=== PATIENT | male | born 1955 | race Two or more races ===

== ENCOUNTER 2017-02-19 18:16 | Emergency (ER) | payer MEDICAID ==
[~2017-02-19] VITALS: Ht 180.3 cm; Wt 77.1 kg
[2017-02-19 19:15] VITALS: BP 143/83
--- NOTE | 2017-02-19 19:56 | Emergency Room Report ---
History of Present Illness General Chief Complaint: General Complaint Source: Patient Present Illness HPI 61-year-old male presents to the emergency department complaining of tender lesions under the tongue and inside the upper lip x3 days. Patient denies fevers, chills, recent illness, past medical history, immunocompromise. Patient denies neck pain or stiffness. Reports moderate sensitivity to lesions in the mouth. Denies rashes. Denies night sweats, significant changes in weight, history of smoking or tobacco use. He states he is otherwise healthy. Denies CP, Palpitations, LOC, AMS, dizziness, Changes in Vision, Sensation, paresthesias, or a sudden severe headache. Allergies: Coded Allergies: No Known Allergies (Unverified , 02/19/17) Patient History Past Medical History: see triage record Past Surgical History: none Pertinent Family History: none Reviewed Nursing Documentation: PMH: Agreed, PSxH: Agreed Nursing Documentation-PMH Past Medical History: No Stated History Review of Systems All Other Systems: negative except mentioned in HPI Physical Exam Vital Signs Date Time Temp Pulse Resp B/P (MAP) Pulse Ox O2 Delivery O2 Flow Rate FiO2 02/19/17 18:40 98.2 67 18 143/83 99 Room Air Sp02 EP Interpretation: reviewed, normal General Appearance: no apparent distress, alert, GCS 15, non-toxic Head: normocephalic, atraumatic Eyes: bilateral eye normal inspection, bilateral eye PERRL ENT: hearing grossly normal, normal pharynx, no angioedema, normal voice, TMs + canals normal, uvula midline, moist mucus membranes, other - white ulcerated lesions on the inner uper lip, and under the tongue on the lingual frenulum, no vesicles Neck: full range of motion, no meningismus, supple/symm/no masses Respiratory: lungs clear, normal breath sounds, speaking full sentences Cardiovascular #1: regular rate, rhythm Musculoskeletal: back normal, gait/station normal, normal range of motion, non- tender Neurologic: alert, oriented x3, responsive, motor strength/tone normal, sensory intact, speech normal Psychiatric: judgement/insight normal, memory normal, mood/affect normal Skin: normal color, no rash, warm/dry, well hydrated Lymphatic: no adenopathy Medical Decision Making PA Attestation Dr. Perla is my supervising Physician whom patient management has been discussed with. Diagnostic Impression: Primary Impression: Aphthous ulcer ER Course 61-year-old male presents to the emergency department complaining of tender lesions under the tongue and inside the upper lip x3 days. Patient denies fevers, chills, recent illness, past medical history, immunocompromise. Patient denies neck pain or stiffness. Reports moderate sensitivity to lesions in the mouth. Denies rashes. Denies night sweats, significant changes in weight, history of smoking or tobacco use. He states he is otherwise healthy. Denies CP, Palpitations, LOC, AMS, dizziness, Changes in Vision, Sensation, paresthesias, or a sudden severe headache. Ddx considered but are not limited to: stomatitis, up from his ulcers, oral thrush, HFM, koplik spots, HSV, dental abscess, [employer]ATOR, tonsiliths. Vital signs: are WNL, pt. is afebrile H&PE are most consistent with aphthous ulcers ORDERS: none required at this time, the diagnosis is clinical ED INTERVENTIONS: None required at this time. -d/w pt. conservative treatment, and to follow up with a primary care provider. pt given a list of primary care clinics for follow up. d/w pt. to return to the ED with worsening or new symptoms. DISCHARGE: At this time pt. is stable for d/c to home. Will provide printed patient care instructions, and any necessary prescriptions. Care plan and follow up instructions have been discussed with the patient prior to discharge. Last Vital Signs Date Time Temp Pulse Resp B/P (MAP) Pulse Ox O2 Delivery O2 Flow Rate FiO2 02/19/17 18:40 98.2 67 18 143/83 99 Room Air Disposition: HOME, SELF-CARE Condition: Stable Scripts Lidocaine HCl 2% Viscous (Lidocaine HCl 2% Viscous) 100 Ml Solution 10 ML ORAL QID, #200 ML Prov: Iona Rodriguez 02/19/17 Chlorhexidine Gluconate (CHLORHEXIDINE GLUCONATE) 473 Ml Mouthwash 15 ML MM BID, #437 ML Prov: Iona Rodriguez 02/19/17 Patient Instructions: Canker Sores, Cold Sore, [id number] Additional Instructions: Take medications as directed. Follow up with a Primary Care Provider in 3-5 days, even if your symptoms have resolved. --Please review list of primary care clinics, if you do not already have a primary care provider Return sooner to ED if new symptoms occur, or current symptoms become worse. - Please note that this Emergency Department Report was dictated using [employer] win[employer] technology software, occasionally this can lead to erroneous entry secondary to interpretation by the dictation equipment. Iona Rodriguez Feb 19, 2017 19:56
[2017-02-19] MEDS ORDERED: LIDOCAINE VISC100 ML ORAL (19:57)
[2017-02-19] MEDS ORDERED: CHLORHEXIDINE473 ML MM (19:57)
[2017-02-19 20:05] VITALS: BP 139/79
== END 2017-02-19 20:05 | disposition home or self-care (01) ==
LOC: EMR 19:35
DX: K12.0 Recurrent oral aphthae (principal)
CPT/HCPCS: 99283